=== PATIENT | male | born 1955 | race Caucasian/White ===

== ENCOUNTER 2020-06-18 11:01 | Emergency (ER) | payer BC, OTHER ==
[~2020-06-18] VITALS: Ht 177.8 cm; Wt 99.8 kg
[2020-06-18 11:25] VITALS: BP 120/79
[2020-06-18] MEDS ORDERED: IBUPROFEN 800 MG TAB PO ONE ×2 (12:45→12:48)
== END 2020-06-18 13:22 | disposition home or self-care (01) ==
LOC: ER 11:01
DX: S92.001A Unspecified fracture of right calcaneus, initial encounter for closed fracture (principal); W19.XXXA Unspecified fall, initial encounter; Y93.89 Activity, other specified; Y92.89 Other specified places as the place of occurrence of the external cause; Y99.8 Other external cause status
CPT/HCPCS: 29515; 73610; 73630